=== PATIENT | male | born 1935 | race Caucasian/White ===

== ENCOUNTER → 2016-11-13 | Outpatient (CLI) | payer MEDICARE, BC ==
[~2016-11-13] MED LIST: ACETAMINOPHEN PO; ASPIRIN PO; CLOTRIMAZOLE/BE15 G1 TP; COREG6.25 MG PO; COUMADIN PO; DAKIN'S MODIF1000 ML EXT; DIFLUCAN200 MG PO; FUROSEMIDE40 MG PO; GLUCOTROL PO; KEFLEX500 MG PO; LASIX PO; LASIX80 MG PO; LORTAB 7.5-5001 TAB PO; LOTRISONE CREAM45 GM TOP; MULTI VITAMIN1 EACH PO; PEPCID PO; PHENERGAN PO; PRAVASTATIN SOD20 MG PO; PRILOSEC PO; PRILOSEC20 MG PO; SANTYL15 G1 TP; SENNA8.6 M1 PO; VIBRAMYCIN100 M1 PO; VICODIN PO
[2016-11-13 07:33] LABS: BUN/CREATININE RATIO 17.69; CALCIUM SERUM 9.4 mg/dL (8.4-10.2); CREATININE SERUM 1.3 mg/dL (0.6-1.4); GLOM FILT RATE Estimated 51.6 mL/min (>60); POTASSIUM 4.6 mmol/L (3.5-5.1)
== END | disposition home or self-care (01) ==
LOC: CLAB 05:58
PROVIDERS: Internal Medicine Endocrinology, Diabetes & Metabolism
DX: E11.22 Type 2 diabetes mellitus with diabetic chronic kidney disease (principal); I12.9 Hypertensive chronic kidney disease with stage 1 through stage 4 chronic kidney disease, or unspecified chronic kidney disease; N18.3 Chronic kidney disease, stage 3 (moderate); I47.1 Supraventricular tachycardia
CPT/HCPCS: 36415; 80048; 83036